=== PATIENT | male | born 1970 ===

== ENCOUNTER 2018-05-02 07:44 | Emergency (ER) | payer OTHER ==
[~2018-05-02] VITALS: Ht 172.7 cm; Wt 80.0 kg
[2018-05-02 09:59] VITALS: BP 143/95
== END 2018-05-02 10:00 | disposition home or self-care (01) ==
LOC: ER 07:44
DX: M54.5 Low back pain (principal); V03.99XA Pedestrian with other conveyance injured in collision with car, pick-up truck or van, unspecified whether traffic or nontraffic accident, initial encounter; Y93.89 Activity, other specified; Y92.89 Other specified places as the place of occurrence of the external cause; Y99.8 Other external cause status
CPT/HCPCS: 72100; 99284